=== PATIENT | male | born 1940 | race Caucasian/White ===

== ENCOUNTER 2019-11-23 10:46 | Inpatient (IN) | payer OTHER ==
[~2019-11-23] VITALS: Ht 193 cm; Wt 101.9 kg
[2019-11-23 11:42] LABS: Basophils # (auto) 0.1 10 ^3/uL (0-0.2); Basophils % (auto) 0.7 % (0.0-2.0); Eosinophils # (auto) 0.1 10 ^3/uL (0-0.8); Eosinophils % (auto) 1.1 % (0.0-7.0); Hematocrit 43.1 % (41.0-53.0); Hemoglobin 14.3 g/dL (13.5-17.5); Lymphocytes # (auto) 4.5 10 ^3/uL (0.4-5.4); Mean Corpuscular Hemoglobin 31.9 pg (28.0-32.0); Mean Corpuscular Hgb Conc. 33.2 g/dL (32.0-36.0); Monocytes # (auto) 0.6 10 ^3/uL (0-1.3); Monocytes % (auto) 5.3 % (0.0-12.0); Neutrophils # (auto) 5.5 10 ^3/uL (1.6-8.6); Neutrophils % (auto) 50.9 % (37.0-80.0); Nucleated Red Blood Cells % 0.1 %; Platelet Count (auto) 116 10^3/uL (140-450); Red Blood Cells 4.49 10^6/uL (4.5-5.90); Red Cell Distribution Width 14.8 % (11.8-14.3); White Blood Cell 10.8 10^3/uL (4.4-10.8)
[2019-11-23 12:01] LABS: Calcium 8.5 mg/dL (8.5-10.1); Potassium 3.9 mmol/L (3.5-5.1)
[2019-11-23 12:04] LABS: INR 1.14 (0.9-1.15); Partial Thromboplastin Time 29.6 sec (23.64-32.05)
[2019-11-23 12:09] LABS: Albumin 3.3 g/dL (3.4-5.0); BUN/Creatinine Ratio 19.7; Bilirubin, Total 1.1 mg/dL (0.2-1.0); Magnesium 2.3 mg/dL (1.6-2.6); Total Protein 6.7 g/dL (6.4-8.2)
[2019-11-23] MEDS ORDERED: NITROGLYCERIN 0.4 MG SL TAB SL PRN (14:00)
[2019-11-23] MEDS ORDERED: HYDROcodone-ACET 5/325MG TAB PO PRN (14:00)
[2019-11-23] MEDS ORDERED: MORPHINE SULF INJ 2 MG/ML SYRINGE 1ML IV PRN ×2 (14:00)
[2019-11-23] MEDS ORDERED: ONDANSETRON HCL 4 MG/2 ML VIAL IV PRN (14:00)
[2019-11-23] MEDS ORDERED: CARV12.544 PO (15:31)
[2019-11-23] MEDS ORDERED: ATOR40TA52 PO (15:31)
[2019-11-23] MEDS ORDERED: LISI10TA6 PO (15:31)
[2019-11-23] MEDS ORDERED: FINA5TAB4 PO (15:31)
[2019-11-23] MEDS ORDERED: ALLO100T PO (15:31)
[2019-11-23] MEDS ORDERED: ASPI-498 PO (15:32)
[2019-11-23] MEDS ORDERED: MULT-928 PO (15:34)
[2019-11-23] MEDS ORDERED: CINN500C7 PO (15:34)
[2019-11-23] MEDS ORDERED: MAGN400T40 PO (15:35)
[2019-11-23 16:02] VITALS: BP 142/78
--- NOTE | 2019-11-23 16:02 | NUR ---
Telemetry admit from ER BHAVANI HENDRIX admitted to Telemetry unit after SBAR received. Patient oriented to LENORA MIRAMONTES primary RN, unit, room 219B and unit policies regarding patient care and visiting hours. Patient now on continuous telemetry monitoring, tele box # 35 and telemetry reading on arrival to unit is NSR 72. Patient placed on bedside oxygen, weighed by bedscale and encouraged to call if they need something. All questions and concerns addressed, patient verbalized understanding.
[2019-11-23 17:00] VITALS: BP 142/78
[2019-11-23] MEDS ORDERED: IOHEXOL 350 MG/ML 100ML IJ ONE (17:02)
--- NOTE | 2019-11-23 17:14 | NUR ---
PATIENT TAKEN TO CT Accompanied by eladia on oxygen at 3L/min via nasal cannula. No signs of distress noted on departure.
--- NOTE | 2019-11-23 17:37 | NUR ---
PATIENT BACK FROM CT Patient back on oxygen at 3L/min via nasal cannula, no signs of distress noted.
--- NOTE | 2019-11-23 18:51 | NUR ---
CALL FROM RADIOLOGIST Darryl Montemayor reported patient's CT angiogram of the chest shows large bilateral pulmonary emboli as well as RV strain. Will notify
--- NOTE | 2019-11-23 18:53 | NUR ---
MESSAGE LEFT FOR Keiko ODOM regarding patient results from CT angio. Message left. awaiting call back.
--- NOTE | 2019-11-23 18:57 | NUR ---
CALL FROM Keiko ODOM updated on the patient status. New orders received for stat consult with tara and heparin drip per protocol, and ICU transfer.
[2019-11-23] MEDS ORDERED: HEPARIN SODIUM (PORCINE) 5000 UNITS/ML 1ML VIAL IV ONE (19:00)
--- NOTE | 2019-11-23 19:06 | NUR ---
NOTIFIED CHARGE AND HOUSE SUP OF ORDER FOR TRANSFER TO ICU.
--- NOTE | 2019-11-23 19:20 | NUR ---
received report from sid verde. per mehreen pulmonary consult with tara called by special education secretary. awaiting heparin.
--- NOTE | 2019-11-23 19:30 | NUR ---
Opening Shift Note Assumed care of patient, awake and alert watching tv. No S/S of distress/SOB or pain. Instructed on POC and to call for assist PRN, will continue to monitor for changes Q1hr and PRN. bed in low position and call light within reach.
[2019-11-23 19:49] LABS: Basophils # (auto) 0 10 ^3/uL (0-0.2); Basophils % (auto) 0.6 % (0.0-2.0); Eosinophils # (auto) 0.1 10 ^3/uL (0-0.8); Eosinophils % (auto) 0.9 % (0.0-7.0); Hematocrit 42.4 % (41.0-53.0); Lymphocytes # (auto) 3.3 10 ^3/uL (0.4-5.4); Lymphocytes % (auto) 39.7 % (10.0-50.0); Mean Corpuscular Hemoglobin 31.7 pg (28.0-32.0); Monocytes # (auto) 0.5 10 ^3/uL (0-1.3); Monocytes % (auto) 6.5 % (0.0-12.0); Neutrophils # (auto) 4.4 10 ^3/uL (1.6-8.6); Neutrophils % (auto) 52.3 % (37.0-80.0); Nucleated Red Blood Cells % 0.1 %; Platelet Count (auto) 110 10^3/uL (140-450); Red Blood Cells 4.41 10^6/uL (4.5-5.90); Red Cell Distribution Width 14.7 % (11.8-14.3); White Blood Cell 8.4 10^3/uL (4.4-10.8)
[2019-11-23 19:57] LABS: INR 1.18 (0.9-1.15); Partial Thromboplastin Time 29.3 sec (23.64-32.05)
[2019-11-23 20:00] VITALS: BP 126/69
[2019-11-23] MEDS ORDERED: HEPARIN SODIUM (PORCINE) 5000 UNITS/ML 1ML VIAL ONE ×5 (20:01→20:02)
--- NOTE | 2019-11-23 20:20 | NUR ---
patient assisted to bedside commode. patient had a BM. patient assisted back to bed. call light within reach and bed in low position side rails up times 2.
[2019-11-23] MEDS: HEPARIN DRIP/D5W 100UNITS/ML 250 ML IV SCH (20:41)
--- NOTE | 2019-11-23 20:50 | NUR ---
notified medical assistant secretary alphonse of pulmonary consult.
[2019-11-23 21:44] VITALS: BP 129/70
[2019-11-23] MEDS: CARVEDILOL 12.5 MG TAB PO SCH (21:52)
[2019-11-23] MEDS: ATORVASTATIN 20 MG TAB PO SCH (21:52)
[2019-11-24 03:32] LABS: INR 1.28 (0.9-1.15)
[2019-11-24 03:34] LABS: Partial Thromboplastin Time > 139.0 sec (23.64-32.05)
--- NOTE | 2019-11-24 03:36 | NUR ---
heparin aptt >139, heparin put on hold per heparin protocol. Tila BARLOW at bedside to verify.
--- NOTE | 2019-11-24 04:36 | NUR ---
heparin heparin decreased by 3ml with patricia pabon. heparin rate is now 14.5ml. patient is awake and alert denies sob distress or pain.
[2019-11-24 05:03] VITALS: BP 117/67
--- NOTE | 2019-11-24 06:15 | NUR ---
patient urinated. 200 ml urine output. patient denies sob distress or pain. bed in low position and call light within reach
--- NOTE | 2019-11-24 06:34 | NUR ---
lab at bedside for lab draws
--- NOTE | 2019-11-24 06:51 | NUR ---
patient rounds patient is in bed resting denies sob distress or pain. iv line is patent and asymptomatic running heparin. IS and SCD at bedside. call light within reach and bed in low position
--- NOTE | 2019-11-24 07:08 | NUR ---
REPORT GIVEN TO DAYSHIFT RN PATIENT DENIES SOB DISTRESS OR PAIN.
[2019-11-24 09:00] VITALS: BP 127/70
[2019-11-24] MEDS: HEPARIN DRIP/D5W 100UNITS/ML 250 ML IV SCH ×3 (10:18→15:23)
[2019-11-24] MEDS: ASPirin 81 mg TAB PO SCH (10:25)
[2019-11-24] MEDS: FINASTERIDE 5 MG TAB PO SCH (10:26)
[2019-11-24] MEDS: ALLOPURINOL 100 MG TAB PO SCH (10:26)
[2019-11-24] MEDS: LISINOPRIL 10 MG TAB PO SCH (10:27)
[2019-11-24] MEDS: CARVEDILOL 12.5 MG TAB PO SCH ×2 (10:27→21:53)
[2019-11-24 10:41] LABS: INR 1.25 (0.9-1.15)
[2019-11-24 10:43] LABS: Partial Thromboplastin Time > 139.0 sec (23.64-32.05)
--- NOTE | 2019-11-24 10:45 | NUR ---
PTT GREATER THAN 139.0 HEPARIN DRIP STOPPED FOR 1 HOUR PER PROTOCOL.
[2019-11-24 13:00] VITALS: BP 136/70
[2019-11-24 15:06] LABS: INR 1.2 (0.9-1.15)
[2019-11-24 15:10] LABS: Partial Thromboplastin Time 80.2 sec (23.64-32.05)
[2019-11-24 17:00] VITALS: BP 129/68
--- NOTE | 2019-11-24 19:11 | NUR ---
Opening Shift Note Assumed care of patient, awake and alert. patient is up sitting,consumed 100% of food. No S/S of distress/SOB or pain. IS at bedside. iv patent and intact running heparin at 9.5 ml. 200 ml of light tank output in urinal. Instructed on POC and to call for assist PRN, will continue to monitor for changes Q1hr and PRN. bed in low position call light within reach.
[2019-11-24 19:47] VITALS: BP 115/60
[2019-11-24 21:28] LABS: INR 1.21 (0.9-1.15); Partial Thromboplastin Time 65.2 sec (23.64-32.05)
--- NOTE | 2019-11-24 21:38 | NUR ---
heparin 65.2 aptt per heparin protocol no change to rate of 9.5ml . iv is intact and patent. Addendum: 11/24/19 at 2143 by ZACHERY BARONE RN RN 2137 patricia mckinney
[2019-11-24] MEDS: ATORVASTATIN 20 MG TAB PO SCH (21:54)
[2019-11-24 22:00] VITALS: BP 117/65
--- NOTE | 2019-11-24 23:03 | NUR ---
patient rounds patient resting in bed denies sob distress or pain. 123/63 blood pressure, heat rate 62bpm,rr 17 even and unlabored, oxygen 98% via 3 l nasal cannula. ekg done and placed in chart due to pvc shown on telemonitor. ekg shows no pvcs. call light within reach and bed in low position. heparin drip running. iv site is intact and patent.
--- NOTE | 2019-11-25 01:55 | NUR ---
patient rounds Patient urine output of 100ml. patient requesting a blanket. denies sob distress or pain.
[2019-11-25 03:21] LABS: INR 1.22 (0.9-1.15)
[2019-11-25 03:26] LABS: Partial Thromboplastin Time 74.2 sec (23.64-32.05)
--- NOTE | 2019-11-25 03:44 | NUR ---
heparin aptt 74.2. per heparin protocol no change. heparin running at 9.5ml. patricia gao verified.
[2019-11-25 05:00] VITALS: BP 116/70
[2019-11-25 08:37] LABS: Basophils # (auto) 0.1 10 ^3/uL (0-0.2); Basophils % (auto) 1.1 % (0.0-2.0); Eosinophils # (auto) 0.1 10 ^3/uL (0-0.8); Eosinophils % (auto) 1.3 % (0.0-7.0); Hematocrit 43.9 % (41.0-53.0); Hemoglobin 14.5 g/dL (13.5-17.5); Lymphocytes # (auto) 4.6 10 ^3/uL (0.4-5.4); Lymphocytes % (auto) 44.7 % (10.0-50.0); Mean Corpuscular Hemoglobin 31.7 pg (28.0-32.0); Mean Corpuscular Volume 95.9 fL (80.0-100.0); Monocytes # (auto) 0.5 10 ^3/uL (0-1.3); Monocytes % (auto) 4.8 % (0.0-12.0); Neutrophils % (auto) 48.1 % (37.0-80.0); Nucleated Red Blood Cells % 0.1 %; Platelet Count (auto) 141 10^3/uL (140-450); Red Blood Cells 4.58 10^6/uL (4.5-5.90); Red Cell Distribution Width 14.6 % (11.8-14.3); White Blood Cell 10.3 10^3/uL (4.4-10.8)
[2019-11-25 08:57] LABS: INR 1.18 (0.9-1.15); Partial Thromboplastin Time 69.3 sec (23.64-32.05)
[2019-11-25 09:00] VITALS: BP 126/67
--- NOTE | 2019-11-25 09:17 | NUR ---
HIDE SHAKER Contacted field case manager in regards of active social service order, per field case manager " I will contact patient insurance and see if Eliquis it is covered/affordable for patient."
--- NOTE | 2019-11-25 09:35 | NUR ---
OXYGEN ASSESSMENT SITTING ON ON O2 3L NC: 98% WALKING ON 02 3L NC: 97% WALKING WITHOUT OXYGEN: 92% PATIENT DENIES SHORTNESS OF BREATH WITHOUT O2, AND WITH EXERTION. Signed: 11/25/19 at 938 by CHANO GORMAN <Co-Signature Required> Co-Signed: 11/25/19 at 938 by SARAH CLARK RN RN
[2019-11-25] MEDS: LISINOPRIL 10 MG TAB PO SCH (09:49)
[2019-11-25] MEDS: ASPirin 81 mg TAB PO SCH (09:49)
[2019-11-25] MEDS: ALLOPURINOL 100 MG TAB PO SCH (09:50)
[2019-11-25] MEDS: CARVEDILOL 12.5 MG TAB PO SCH (09:51)
[2019-11-25] MEDS: FINASTERIDE 5 MG TAB PO SCH (09:51)
--- NOTE | 2019-11-25 10:25 | NUR ---
1000 11/25/19 - Contacted [employer] briefcase sewer Tala at [phone] regarding medication coverage. Tala stated she would contact outpatient coordinator and get back with me.
--- NOTE | 2019-11-25 10:30 | NUR ---
OXYGEN ASSESSMENT Patient off oxygen since 0900. Current saturation is 88%-89% post exertion. Patient denies feeling short of breath but saturation is holding at 89%. Will place NC o2 back at 1L to hold saturations over 92%
--- NOTE | 2019-11-25 10:45 | NUR ---
Assessment Patient is a 79-year-old male who is alert and oriented. Prior to admission patient lived home with his and functioned independently. Per patient he can care for his own ADLs. Patient informed me he does not need any medical equipment now. Per patient he will return home to his prior living arrangements post discharge and his will transport him home. Advised patient there is a social service consult for home health safety evaluation and to assess patient for oxygen if less than 92% oxygen will be arranged. Informed patient clinical information will be faxed to [facility] and [facility]. Informed patient his health plan will determine if he meets criteria for home oxygen. Informed patient he has the right to participate in all discharge planning. Patient verbalized understanding and agreed to discharge plan. Faxed clinical information to [facility] and [facility]. Per Eva with [facility] they can accept patient and will be seen within 24-48hrs upon d/c day. Placed call to SITA Edgar with [facility] at 10:24am advising her of accepting agency and oxygen assessment. Per SITA Edgar patient does not meet criteria for home oxygen and they will authorize the home health. Informed YEN Valdes. Addendum: 11/25/19 at 1046 by ELODIA CRANE Amended: Links added.
--- NOTE | 2019-11-25 11:00 | NUR ---
PATIENTS OXYGEN SATURATION DROPPED TO 88%-89% WHILE ON ROOM AIR. WILL CONTINUE O2 AT 3L
[2019-11-25] MEDS ORDERED: ALBUAER3 IN (11:02)
[2019-11-25] MEDS ORDERED: APIX5TAB PO (11:02)
--- NOTE | 2019-11-25 11:30 | NUR ---
OXYGEN SATURATION PATIENT NEEDS OXYGEN AT 3L TO KEEP SATURATIONS ABOVE 92%
--- NOTE | 2019-11-25 11:42 | NUR ---
DR. MAI PAGED FOR DC CLEARANCE. AWAITING CALL BACK.
--- NOTE | 2019-11-25 11:50 | NUR ---
D/C wedding planning internship Cinthia advised me patient oxygen saturation dropped to 88%-89% while on room air. Informed patient updated notes will be faxed to [facility]. Placed followed up called to SITA Edgar with [facility] at 11:35 am advising her patient oxygen saturation is under 92%. Per SITA Edgar doctor contact her and they will be authorizing home oxygen. Faxed clinical information to [facility] requesting for portable oxygen to be deliver to bedside.
[2019-11-25] MEDS ORDERED: WARF-196 PO (12:08)
[2019-11-25] MEDS ORDERED: ENO100SY SC (12:08)
[2019-11-25] MEDS ORDERED: WARFARIN SODIUM 5 MG TAB PO ONE ×2 (12:15)
[2019-11-25 13:00] VITALS: BP 120/65
[2019-11-25] MEDS ORDERED: APIXABAN 5 MG TAB PO ONE (13:00)
[2019-11-25 13:33] VITALS: BP 120/65
--- NOTE | 2019-11-25 15:03 | NUR ---
LOVENOX ADMIN VERIFICATION CALL TO DR Keiko POTTER TO CLARIFY IF MD WANTS PATIENT TO RECEIVE DOSE OF LOVENOX ALONG WITH ONE TIME COUMADIN PRIOR TO DISCHARGE. PER MD, PATIENT IS TO RECEIVE BOTH LOVENOX AND 5MG COUMADIN BEFORE DISCHARGE. WILL IMPLEMENT.
--- NOTE | 2019-11-25 16:21 | NUR ---
D/C Planning Regarding social service consult for daily INR checks. Faxed updated order to [facility] and [facility]. [facility] will deliver portable oxygen between 16:00-19:00 and concentrate to home. Informed YEN Valdes.
--- NOTE | 2019-11-25 16:32 | NUR ---
PATIENT TEACHING PATIENT WAS INSTRUCTED ON HOW AND WHERE TO SELF-INJECT LOVENOX. PATIENT VERBALIZED UNDERSTANDING. INSTRUCTION PACKAGE ALSO INCLUDED WITH DISCHARGE PAPERWORK. PATIENT EDUCATED ON WARFARIN/LOVENOX USES, SIDE EFFECTS, AND COUNTER INTERACTIONS WITH VERBALIZED UNDERSTANDING. Signed: 11/25/19 at 1638 by CHANO GORMAN <Co-Signature Required> Co-Signed: 11/25/19 at 1638 by SARAH CLARK RN RN
--- NOTE | 2019-11-25 16:38 | NUR ---
HOME 02 RECEIVED CALL FROM [facility] [employer]PAR[employer] KITCHEN AIDE, STATING PATIENT'S HOME 02 ETA IS BETWEEN 1600 AND 1900. PATIENT NOTIFIED OF ETA. Signed: 11/25/19 at 1640 by CHANO GORMAN <Co-Signature Required> Co-Signed: 11/25/19 at 1640 by SARAH CLARK RN RN
[2019-11-25 17:00] VITALS: BP 121/67
--- NOTE | 2019-11-25 17:50 | NUR ---
HOME O2 PORTABLE OXYGEN TANK DELIVERED AT BED SIDE.
--- NOTE | 2019-11-25 18:08 | NUR ---
Discharge instructions given as ordered. Encourage to follow up with PMD as instructed. All questions and concerns addressed. Lovenox sc teaching given. Patient verbalized understanding. Medication reconciliation form completed and copy given to patient. IV removed with catheter intact, pressure dressing applied. Telemetry unit returned to ICU. Patient taken to vehicle via wheelchair with all personal belongings and portable oxygen tank, accompanied by staff. No distress noted at time of departure.
[2019-11-25] MEDS ORDERED: APIXABAN 5 MG TAB PO SCH (22:00)
[2019-11-25] MEDS ORDERED: ENOXAPARIN SOD 100 MG/1 ML SYRINGE SC SCH (22:00)
== END 2019-11-25 18:15 | disposition home health service (06) | DRG 175 ==
LOC: EDBD 10:46 → ER 10:46 → TELE 10:47 → TELE-CENTR 16:05
PROVIDERS: ADMIT Internal Medicine; ATTEND Internal Medicine
DX: I26.99 Other pulmonary embolism without acute cor pulmonale (principal); J96.01 Acute respiratory failure with hypoxia; J98.11 Atelectasis; R07.89 Other chest pain; I10 Essential (primary) hypertension; E78.5 Hyperlipidemia, unspecified; I25.10 Atherosclerotic heart disease of native coronary artery without angina pectoris; I27.20 Pulmonary hypertension, unspecified; I77.819 Aortic ectasia, unspecified site; M10.9 Gout, unspecified; Z83.3 Family history of diabetes mellitus; Z95.5 Presence of coronary angioplasty implant and graft
CPT/HCPCS: 36415; 71045; 71275; 80053; 83735; 83880; 84484; 85025; 85610; 85730; 93306; 93970; 96365; G0378

== ENCOUNTER 2019-11-28 06:44 | Emergency (ER) | payer OTHER ==
[~2019-11-28] VITALS: Ht 193 cm; Wt 102.1 kg
[~2019-11-28 06:44] MED LIST: ALBUAER3 IN; ALLO100T PO; ASPI-498 PO; ATOR40TA52 PO; CARV12.544 PO; CINN500C7 PO; ENO100SY SC; FINA5TAB4 PO; LISI10TA6 PO; MAGN400T40 PO; MULT-928 PO; WARF-196 PO
[2019-11-28 06:57] VITALS: BP 150/72
[2019-11-28] MEDS ORDERED: SODIUM CHLORIDE 0.9% 1,000 ML IV ONE (07:16)
[2019-11-28 09:28] LABS: Hematocrit 43.3 % (41.0-53.0); Hemoglobin 14.4 g/dL (13.5-17.5); Mean Corpuscular Hemoglobin 31.8 pg (28.0-32.0); Mean Corpuscular Hgb Conc. 33.2 g/dL (32.0-36.0); Mean Corpuscular Volume 95.8 fL (80.0-100.0); Platelet Count (auto) 157 10^3/uL (140-450); Red Blood Cells 4.52 10^6/uL (4.5-5.90); Red Cell Distribution Width 14.6 % (11.8-14.3); White Blood Cell 9.9 10^3/uL (4.4-10.8)
[2019-11-28 09:34] LABS: Band Neutrophils % (manual) 0; Basophils % (manual) 0 (0.0-2.0); Blast Cells 0; INR 2.13 (0.9-1.15); Metamyelocytes % 0; Myelocytes % 0; Partial Thromboplastin Time 39.3 sec (23.64-32.05); Promyelocytes % 0
[2019-11-28 09:37] LABS: BUN/Creatinine Ratio 18.6; Calcium 9.2 mg/dL (8.5-10.1); Potassium 4.3 mmol/L (3.5-5.1)
[2019-11-28 11:50] LABS: Eosinophils % (manual) 1 (0-7); Lymphocytes % (manual) 45 (10.0-50.0); Monocytes % (manual) 2 (0-12); Reactive Lymphocytes 2
== END 2019-11-28 10:41 | disposition home or self-care (01) ==
LOC: ER 06:44
DX: R04.0 Epistaxis (principal); D68.9 Coagulation defect, unspecified; I10 Essential (primary) hypertension; E78.5 Hyperlipidemia, unspecified; Z79.899 Other long term (current) drug therapy; Z86.711 Personal history of pulmonary embolism
CPT/HCPCS: 30901; 36415; 80048; 85007; 85027; 85610; 85730

== ENCOUNTER 2022-10-08 07:05 | Day surgery (SDC) | payer OTHER ==
[~2022-10-08] VITALS: Ht 193 cm; Wt 93.0 kg
[~2022-10-08 07:05] MED LIST changes: -ALBUAER3 IN; -ASPI-498 PO; -CINN500C7 PO; -ENO100SY SC; +LATA0.008 OP; +LISI10TA34 PO; -LISI10TA6 PO; -MAGN400T40 PO; +NITR0.4S29 SL
[2022-10-08] MEDS ORDERED: MIDAZOLAM HCL 2MG/2ML 2ml VIAL (1mg/ml) IM ONE (07:30)
[2022-10-08] MEDS ORDERED: fentaNYL CITRATE 100 MCG/2 ML VL IV ONE ×2 (07:30→08:30)
[2022-10-08] MEDS ORDERED: LIDOCAINE VISCOUS 2% 15ML UD MT ONE ×2 (07:30→08:30)
[2022-10-08] MEDS ORDERED: MIDAZOLAM HCL 2MG/2ML 2ml VIAL (1mg/ml) IV ONE ×2 (08:30→10:15)
[2022-10-08 09:49] VITALS: BP 121/50
[2022-10-08 10:04] VITALS: BP 108/44
[2022-10-08 10:19] VITALS: BP 111/45
[2022-10-08 10:34] VITALS: BP 114/49
[2022-10-08 10:36] VITALS: BP 118/50
== END 2022-10-08 10:47 | disposition home or self-care (01) ==
LOC: CATH 07:05
PROVIDERS: ATTEND Internal Medicine Cardiovascular Disease
DX: I35.9 Nonrheumatic aortic valve disorder, unspecified (principal); I08.3 Combined rheumatic disorders of mitral, aortic and tricuspid valves; I10 Essential (primary) hypertension; Z79.899 Other long term (current) drug therapy
CPT/HCPCS: 76937; 93312; J2250; J3010; 99152

== ENCOUNTER 2022-12-30 15:03 | Inpatient (IN) | payer OTHER ==
[~2022-12-30] VITALS: Ht 193 cm; Wt 99.2 kg
[2022-12-30] VITALS (19 sets, daily range): BP systolic 100–123; BP diastolic 43–62; PULSE 73–100; RESP 15–25; TEMP 95.9–97.6; O2SAT 94–99
[2022-12-30 16:47] LABS: Urine Bacteria NONE SEEN /hpf (None Seen); Urine Blood 2+ /uL (Negative); Urine Clarity Clear (Clear); Urine Color Yellow (Yellow); Urine Protein, UAD 1+ (Negative); Urine Urobilinogen Normal (Negative); Urine WBC 11 /hpf (0 - 3); Urine pH 6.5 (5.0-8.0)
[2022-12-30] MEDS ORDERED: SODIUM CHLORIDE 0.9% 1,000 ML IV ONE ×2 (17:15→22:30)
[2022-12-30 17:28] LABS: Hematocrit 19.5 % (41.0-53.0); Mean Corpuscular Hemoglobin 32.6 pg (28.0-32.0); Mean Corpuscular Hgb Conc. 29.9 g/dL (32.0-36.0); Mean Corpuscular Volume 109.1 fL (80.0-100.0); Red Blood Cells 1.79 10^6/uL (4.5-5.90)
[2022-12-30] MEDS ORDERED: cefTRIAXone 1GM/50ML D5W 50 ML IV ONE (17:30)
[2022-12-30] MEDS ORDERED: levoFLOXacin 500MG 100 ML IV ONE (17:30)
[2022-12-30 17:40] LABS: Red Cell Distribution Width 22.3 % (11.8-14.3)
[2022-12-30 17:43] LABS: Hemoglobin 5.8 g/dL (13.5-17.5); White Blood Cell 283.6 10^3/uL (4.4-10.8)
[2022-12-30 17:44] LABS: Band Neutrophils % (manual) 0; Basophils % (manual) 0 (0.0-2.0); Blast Cells 0; Eosinophils % (manual) 0 (0-7); Metamyelocytes % 0; Monocytes % (manual) 0 (0-12); Myelocytes % 0; Promyelocytes % 0; Reactive Lymphocytes 0
[2022-12-30 17:58] LABS: Albumin 2.2 g/dL (3.4-5.0); Calcium 7.2 mg/dL (8.7-10.4); Magnesium 2.6 mg/dL (1.6-2.6); Potassium 4.8 mmol/L (3.5-5.1)
[2022-12-30 18:05] LABS: Lymphocytes % (manual) 95 (10.0-50.0); Smudge Cells 35 /100 WBC
[2022-12-30 18:06] LABS: Anisocytosis Moderate; Macrocytosis Moderate; Ovalocytes FEW; Platelet Estimate Decreased; Polychromasia Slight
[2022-12-30 18:08] LABS: Lactic Acid w/Reflex 3.9 mmol/L (0.4-2.0)
[2022-12-30 18:10] LABS: BUN/Creatinine Ratio 31.2 (10.0-20.0); Bilirubin, Total 1.4 mg/dL (0.2-1.0)
[2022-12-30 18:31] LABS: Partial Thromboplastin Time 59.2 SEC (24.5-34.5); Prothrombin Time 55.5 sec (9.3-11.8)
[2022-12-30 18:39] LABS: INR 5.94 (0.9-1.15)
[2022-12-30] MEDS: NOREPINEPHRINE 8 MG/250ML KIT 250 ML IV SCH (19:29)
[2022-12-30] MEDS ORDERED: phytonadione 10 MG in SODIUM CHL 0.9% 50 ML IV ONE (22:30)
[2022-12-30] MEDS ORDERED: ONDANSETRON HCL 4 MG/2 ML VIAL IV PRN (22:30)
[2022-12-30] MEDS ORDERED: NITROGLYCERIN 0.4 MG SL TAB SL PRN (22:30)
[2022-12-30] MEDS ORDERED: ACETAMINOPHEN 325 MG TAB PO PRN (22:30)
[2022-12-30] MEDS ORDERED: MORPHINE SULFATE INJ 2 MG/ml SYRG IV PRN (22:30)
[2022-12-30] MEDS ORDERED: DOCUSATE SOD 100 MG CAP PO PRN (22:30)
[2022-12-30] MEDS ORDERED: HYDROcodone-ACET 5/325MG TAB PO PRN (22:30)
[2022-12-30] MEDS ORDERED: ALBUTEROL SULF 2.5 MG/0.5ML(0.5%) NEB SOLN NEB PRN (22:45)
[2022-12-30] MEDS ORDERED: IPRATROPIUM BROM 0.5 MG/2.5ML INH SOL NEB PRN (22:45)
[2022-12-31] VITALS (90 sets, daily range): BP systolic 77–125; BP diastolic 42–66; PULSE 77–116; RESP 11–26; TEMP 36.4; O2SAT 90–99
[2022-12-31] MEDS ORDERED: phytonadione 1 ML ONE (00:21)
[2022-12-31 04:38] LABS: Red Blood Cells 2.44 10^6/uL (4.5-5.90); Red Cell Distribution Width 19.2 % (11.8-14.3)
[2022-12-31 04:43] LABS: Hemoglobin 7.7 g/dL (13.5-17.5); INR 3.15 (0.9-1.15); Mean Corpuscular Hemoglobin 31.7 pg (28.0-32.0); Mean Corpuscular Volume 102.3 fL (80.0-100.0); Prothrombin Time 30.7 sec (9.3-11.8)
[2022-12-31 04:50] LABS: Calcium 7.4 mg/dL (8.7-10.4); Potassium 4.3 mmol/L (3.5-5.1)
[2022-12-31 04:52] LABS: BUN/Creatinine Ratio 37.9 (10.0-20.0)
[2022-12-31 04:55] LABS: Lactic Acid w/Reflex 2.4 mmol/L (0.4-2.0)
[2022-12-31 05:35] LABS: White Blood Cell 354.6 10^3/uL (4.4-10.8)
[2022-12-31 05:36] LABS: Band Neutrophils % (manual) 0; Basophils % (manual) 0 (0.0-2.0); Blast Cells 0; Eosinophils % (manual) 0 (0-7); Metamyelocytes % 0; Monocytes % (manual) 0 (0-12); Myelocytes % 0; Promyelocytes % 0; Reactive Lymphocytes 0
[2022-12-31] MEDS ORDERED: PIPERACILLIN-TAZOB 3.375GM 100 ML IV SCH (06:00)
[2022-12-31] MEDS: NOREPINEPHRINE 8 MG/250ML KIT 250 ML IV SCH ×2 (08:10→20:20)
[2022-12-31 08:25] LABS: Lymphocytes % (manual) 97 (10.0-50.0)
[2022-12-31 08:28] LABS: Anisocytosis Moderate; Platelet Estimate Adequate
[2022-12-31] MEDS: PANTOPRAZOLE 40 MG/10 ML VIAL INJ IV SCH ×2 (09:46→21:09)
[2022-12-31] MEDS ORDERED: HYDROCORTISONE SOD SUCC 100 MG/2ML INJ VIAL IV ONE (10:30)
[2022-12-31] MEDS ORDERED: VANCOMYCIN PER PHARMACY 0 MG IV SCH (10:30)
[2022-12-31] MEDS ORDERED: VANCOMYCIN 1GM/250ML 250 ML IV SCH (12:00)
[2022-12-31] MEDS: SODIUM CHLORIDE 0.9% 1,000 ML IV SCH (12:47)
[2022-12-31 13:46] LABS: Hemoglobin 7.2 g/dL (13.5-17.5); Red Cell Distribution Width 19.2 % (11.8-14.3)
[2022-12-31 13:52] LABS: Hematocrit 23.8 % (41.0-53.0); Mean Corpuscular Hemoglobin 31.1 pg (28.0-32.0); Mean Corpuscular Hgb Conc. 30.2 g/dL (32.0-36.0); Mean Corpuscular Volume 103.3 fL (80.0-100.0); Red Blood Cells 2.31 10^6/uL (4.5-5.90)
[2022-12-31 14:06] LABS: INR 1.71 (0.9-1.15); Prothrombin Time 17.3 sec (9.3-11.8)
[2022-12-31] MEDS: CEFEPIME 1GM/ 50ML 50 ML IV SCH (14:22)
[2022-12-31 14:32] LABS: White Blood Cell 348.7 10^3/uL (4.4-10.8)
[2022-12-31 14:35] LABS: Band Neutrophils % (manual) 0; Basophils % (manual) 0 (0.0-2.0); Blast Cells 0; Eosinophils % (manual) 0 (0-7); Metamyelocytes % 0; Myelocytes % 0; Promyelocytes % 0
[2022-12-31 14:49] LABS: Lactic Acid w/Reflex 2.1 mmol/L (0.4-2.0)
[2022-12-31 15:09] LABS: COVID19 ANTIGEN SOFIA FIA NEGATIVE (NEGATIVE)
[2022-12-31 18:21] LABS: Hematocrit 23.7 % (41.0-53.0); Hemoglobin 7.3 g/dL (13.5-17.5)
[2022-12-31] MEDS: HYDROCORTISONE SOD SUCC 100 MG/2ML INJ VIAL IV SCH (18:43)
[2022-12-31 20:48] LABS: Monocytes % (manual) 1 (0-12); Reactive Lymphocytes 6
[2022-12-31 20:50] LABS: Platelet Estimate Adequate
[2022-12-31 20:51] LABS: Anisocytosis Moderate
[2022-12-31 20:53] LABS: Smudge Cells 16 /100 WBC; Tear Drop Cells FEW
[2023-01-01] VITALS (95 sets, daily range): BP systolic 87–120; BP diastolic 37–67; PULSE 80–106; RESP 11–25; TEMP 96.4–97.7; O2SAT 94–99
[2023-01-01] MEDS: SODIUM CHLORIDE 0.9% 1,000 ML IV SCH ×2 (01:07→14:03)
[2023-01-01] MEDS: CEFEPIME 1GM/ 50ML 50 ML IV SCH (01:56)
[2023-01-01] MEDS: HYDROCORTISONE SOD SUCC 100 MG/2ML INJ VIAL IV SCH ×3 (01:57→19:32)
[2023-01-01 04:19] LABS: Hemoglobin 7.1 g/dL (13.5-17.5)
[2023-01-01 04:24] LABS: Hematocrit 22.9 % (41.0-53.0); Mean Corpuscular Hemoglobin 31.6 pg (28.0-32.0); Mean Corpuscular Volume 101.9 fL (80.0-100.0); Red Blood Cells 2.25 10^6/uL (4.5-5.90)
[2023-01-01 04:38] LABS: Band Neutrophils % (manual) 0; Basophils % (manual) 0 (0.0-2.0); Blast Cells 0; Eosinophils % (manual) 0 (0-7); Metamyelocytes % 0; Monocytes % (manual) 0 (0-12); Myelocytes % 0; Promyelocytes % 0; Reactive Lymphocytes 0
[2023-01-01 04:39] LABS: Chloride 103 mmol/L (98-107); Potassium 4.4 mmol/L (3.5-5.1); Sodium 133 mmol/L (136-145)
[2023-01-01 04:40] LABS: Calcium 7.4 mg/dL (8.7-10.4)
[2023-01-01 04:45] LABS: BUN/Creatinine Ratio 40.4 (10.0-20.0); Blood Urea Nitrogen 67 mg/dL (9-23); Glucose 129 mg/dL (74-106)
[2023-01-01 04:46] LABS: Magnesium 2.1 mg/dL (1.6-2.6)
[2023-01-01 04:47] LABS: Phosphorus 4.9 mg/dL (2.4-5.1)
[2023-01-01 07:18] LABS: Anisocytosis Slight; Lymphocytes % (manual) 96 (10.0-50.0); Smudge Cells 10 /100 WBC
[2023-01-01 07:19] LABS: Macrocytosis Slight; Platelet Estimate Adequate; Polychromasia Slight
[2023-01-01] MEDS: VANCOMYCIN 1GM/250ML 250 ML IV SCH (08:50)
[2023-01-01] MEDS: PANTOPRAZOLE 40 MG/10 ML VIAL INJ IV SCH ×2 (09:33→22:25)
[2023-01-01 11:04] LABS: Sodium Urine < 10 mmol/L (40-220)
[2023-01-01 11:11] LABS: Protein, Urine 38.4 mg/dL (0.0-11.9)
[2023-01-01 11:12] LABS: Creatinine, Urine 61.92 mg/dL (30.0-125.0)
[2023-01-01] MEDS: CEFEPIME 2GM/50ML NS 50 ML IV SCH (13:54)
[2023-01-01 15:14] LABS: Lymphocytes % (manual) 87 (10.0-50.0)
[2023-01-01] MEDS ORDERED: Ensure HIGH Protein Chocolate 8oz Bottle PO SCH (18:00)
[2023-01-01] MEDS: Glucerna Carbsteady SHAKE Vanilla 8oz PO SCH (18:30)
[2023-01-02] VITALS (101 sets, daily range): BP systolic 78–119; BP diastolic 36–63; PULSE 75–102; RESP 10–24; TEMP 95.4–98; O2SAT 92–99
[2023-01-02] MEDS: CEFEPIME 2GM/50ML NS 50 ML IV SCH ×2 (02:02→14:58)
[2023-01-02] MEDS: HYDROCORTISONE SOD SUCC 100 MG/2ML INJ VIAL IV SCH ×3 (02:49→18:37)
[2023-01-02] MEDS: VANCOMYCIN 1GM/250ML 250 ML IV SCH (02:49)
[2023-01-02 04:51] LABS: INR 1.43 (0.9-1.15); Partial Thromboplastin Time 38.1 SEC (24.5-34.5); Prothrombin Time 14.7 sec (9.3-11.8)
[2023-01-02 04:52] LABS: Chloride 104 mmol/L (98-107); Potassium 4.3 mmol/L (3.5-5.1); Sodium 133 mmol/L (136-145)
[2023-01-02 04:53] LABS: Anion Gap 8.4 (5-15); Carbon Dioxide 20.6 mmol/L (20-30)
[2023-01-02 04:54] LABS: Calcium 7.5 mg/dL (8.7-10.4)
[2023-01-02 04:58] LABS: BUN/Creatinine Ratio 34.9 (10.0-20.0); Glucose 125 mg/dL (74-106)
[2023-01-02 05:15] LABS: Blood Urea Nitrogen 51 mg/dL (9-23); Hematocrit 21.1 % (41.0-53.0); Mean Corpuscular Hgb Conc. 31.7 g/dL (32.0-36.0)
[2023-01-02 05:18] LABS: Mean Corpuscular Hemoglobin 32.8 pg (28.0-32.0); Mean Corpuscular Volume 103.5 fL (80.0-100.0); Red Blood Cells 2.04 10^6/uL (4.5-5.90); Red Cell Distribution Width 19.4 % (11.8-14.3)
[2023-01-02 05:47] LABS: Hemoglobin 6.7 g/dL (13.5-17.5); White Blood Cell 206.9 10^3/uL (4.4-10.8)
[2023-01-02 05:49] LABS: Band Neutrophils % (manual) 0; Basophils % (manual) 0 (0.0-2.0); Blast Cells 0; Eosinophils % (manual) 0 (0-7); Metamyelocytes % 0; Myelocytes % 0; Promyelocytes % 0; Reactive Lymphocytes 0
[2023-01-02] MEDS: Glucerna Carbsteady SHAKE Vanilla 8oz PO SCH ×3 (08:00→18:00)
[2023-01-02 08:30] LABS: Lymphocytes % (manual) 93 (10.0-50.0); Monocytes % (manual) 2 (0-12)
[2023-01-02 08:32] LABS: Anisocytosis Moderate; Hypochromia Slight; Macrocytosis Slight; Platelet Estimate Decreased
[2023-01-02] MEDS ORDERED: FUROSEMIDE 40 MG/4 ML VIAL IV SCH (10:00)
[2023-01-02] MEDS: NOREPINEPHRINE 8 MG/250ML KIT 250 ML IV SCH (10:21)
[2023-01-02] MEDS: PANTOPRAZOLE 40 MG/10 ML VIAL INJ IV SCH ×2 (10:29→23:55)
[2023-01-02] MEDS: IRON SUCROSE COMPLEX 200 MG in SODIUM CHL 0.9% 100 ML IV SCH (13:53)
[2023-01-02 14:17] LABS: Body Fluid Red Blood Cells 1322500 CUMM (0-2000); Body Fluid White Blood Cells 156 CUMM (0-200)
[2023-01-02 14:32] LABS: Body Fluid Polymorphonuclear 4 % (0-25)
[2023-01-02] MEDS: ALBUMIN 25% 100 ML IV SCH ×2 (17:37→23:56)
[2023-01-02] MEDS ORDERED: LIDOCAINE 1% (LOCAL ANESTH.) PF 5ml SDV ID ONE (18:15)
[2023-01-02] MEDS: FUROSEMIDE 40 MG/4 ML VIAL IV SCH (18:36)
[2023-01-02 19:06] LABS: Hemoglobin 7.6 g/dL (13.5-17.5)
[2023-01-02 19:09] LABS: Hematocrit 24.8 % (41.0-53.0)
[2023-01-02] MEDS: SODIUM CHLOR 0.9% PF (SALINE LOCK) 10ML VIAL/SYR IV SCH (23:56)
[2023-01-03] VITALS (102 sets, daily range): BP systolic 86–116; BP diastolic 37–67; PULSE 57–99; RESP 9–29; TEMP 95.9–97.7; O2SAT 93–99
[2023-01-03] MEDS: CEFEPIME 2GM/50ML NS 50 ML IV SCH ×2 (02:05→15:34)
[2023-01-03] MEDS: HYDROCORTISONE SOD SUCC 100 MG/2ML INJ VIAL IV SCH ×3 (02:07→21:36)
[2023-01-03 04:31] LABS: Chloride 103 mmol/L (98-107); Potassium 3.9 mmol/L (3.5-5.1); Sodium 133 mmol/L (136-145)
[2023-01-03 04:32] LABS: Anion Gap 9.4 (5-15); Calcium 7.7 mg/dL (8.7-10.4); Carbon Dioxide 20.6 mmol/L (20-30)
[2023-01-03 04:37] LABS: BUN/Creatinine Ratio 36.2 (10.0-20.0); Blood Urea Nitrogen 55 mg/dL (9-23); Glucose 132 mg/dL (74-106)
[2023-01-03 04:38] LABS: Hematocrit 21.1 % (41.0-53.0); Mean Corpuscular Hgb Conc. 31.8 g/dL (32.0-36.0); Mean Corpuscular Volume 100.5 fL (80.0-100.0)
[2023-01-03 04:59] LABS: Hemoglobin 6.7 g/dL (13.5-17.5); Red Cell Distribution Width 20.1 % (11.8-14.3); White Blood Cell 200.4 10^3/uL (4.4-10.8)
[2023-01-03 05:01] LABS: Band Neutrophils % (manual) 0; Basophils % (manual) 0 (0.0-2.0); Blast Cells 0; Eosinophils % (manual) 0 (0-7); Metamyelocytes % 0; Monocytes % (manual) 0 (0-12); Myelocytes % 0; Promyelocytes % 0; Reactive Lymphocytes 0
[2023-01-03] MEDS: FUROSEMIDE 40 MG/4 ML VIAL IV SCH ×2 (06:38→17:19)
[2023-01-03 07:54] LABS: Lymphocytes % (manual) 86 (10.0-50.0); Platelet Estimate Decreased
[2023-01-03] MEDS: Glucerna Carbsteady SHAKE Vanilla 8oz PO SCH ×3 (08:49→17:20)
[2023-01-03] MEDS: SODIUM CHLOR 0.9% PF (SALINE LOCK) 10ML VIAL/SYR IV SCH ×2 (09:45→21:36)
[2023-01-03] MEDS: PANTOPRAZOLE 40 MG/10 ML VIAL INJ IV SCH ×2 (09:45→21:36)
[2023-01-03] MEDS: ALBUMIN 25% 100 ML IV SCH (09:45)
[2023-01-03] MEDS: IRON SUCROSE COMPLEX 200 MG in SODIUM CHL 0.9% 100 ML IV SCH (12:00)
[2023-01-03 12:07] LABS: LD, Body Fluid 369 IU/L (.); Protein, Body Fluid 2.4 g/dL (.)
[2023-01-03 13:06] LABS: Glucose, Body Fluid <2 mg/dL (.)
[2023-01-03] MEDS: NOREPINEPHRINE 8 MG/250ML KIT 250 ML IV SCH ×2 (17:15→19:36)
[2023-01-03] MEDS: MIDODRINE HCL 10 MG TAB PO SCH (17:19)
[2023-01-04] VITALS (97 sets, daily range): BP systolic 84–114; BP diastolic 38–55; PULSE 57–92; RESP 10–26; TEMP 95.4–97.7; O2SAT 85–98
[2023-01-04] MEDS: CEFEPIME 2GM/50ML NS 50 ML IV SCH ×2 (03:42→14:29)
[2023-01-04 05:03] LABS: Anion Gap 9.2 (5-15); Carbon Dioxide 21.8 mmol/L (20-30); Chloride 103 mmol/L (98-107); Potassium 3.5 mmol/L (3.5-5.1); Sodium 134 mmol/L (136-145)
[2023-01-04 05:04] LABS: Calcium 7.8 mg/dL (8.7-10.4); Hematocrit 26.7 % (41.0-53.0); Mean Corpuscular Hemoglobin 32.8 pg (28.0-32.0); Mean Corpuscular Hgb Conc. 33.5 g/dL (32.0-36.0); Mean Corpuscular Volume 98.1 fL (80.0-100.0); Red Blood Cells 2.72 10^6/uL (4.5-5.90); Red Cell Distribution Width 19.6 % (11.8-14.3)
[2023-01-04 05:09] LABS: BUN/Creatinine Ratio 34.2 (10.0-20.0); Blood Urea Nitrogen 51 mg/dL (9-23); Glucose 114 mg/dL (74-106)
[2023-01-04 05:10] LABS: Magnesium 1.9 mg/dL (1.6-2.6)
[2023-01-04 05:39] LABS: White Blood Cell 193.5 10^3/uL (4.4-10.8)
[2023-01-04 05:40] LABS: Band Neutrophils % (manual) 0; Basophils % (manual) 0 (0.0-2.0); Blast Cells 0; Eosinophils % (manual) 0 (0-7); Metamyelocytes % 0; Myelocytes % 0; Promyelocytes % 0; Reactive Lymphocytes 0
[2023-01-04] MEDS: MIDODRINE HCL 10 MG TAB PO SCH ×3 (06:07→17:05)
[2023-01-04] MEDS: POTASSIUM CHL 20MEQ/100ML 100 ML IV SCH ×2 (07:41→09:11)
[2023-01-04] MEDS: Glucerna Carbsteady SHAKE Vanilla 8oz PO SCH ×3 (09:11→17:06)
[2023-01-04] MEDS: HYDROCORTISONE SOD SUCC 100 MG/2ML INJ VIAL IV SCH ×2 (09:11→21:33)
[2023-01-04] MEDS: PANTOPRAZOLE 40 MG/10 ML VIAL INJ IV SCH ×2 (09:11→21:33)
[2023-01-04] MEDS: SODIUM CHLOR 0.9% PF (SALINE LOCK) 10ML VIAL/SYR IV SCH ×2 (09:12→21:32)
[2023-01-04] MEDS: FUROSEMIDE 40 MG/4 ML VIAL IV SCH (09:12)
[2023-01-04 09:27] LABS: Lymphocytes % (manual) 88 (10.0-50.0); Monocytes % (manual) 3 (0-12); Platelet Estimate Decreased
[2023-01-04] MEDS ORDERED: POTASSIUM EFFERVESENT TAB 25 MEQ PO SCH (10:00)
[2023-01-04 13:20] LABS: Bilirubin, Direct 1.2 mg/dL (<0.3); Bilirubin, Total 2.1 mg/dL (0.2-1.0); Total Protein 4.4 g/dL (5.7-8.2)
[2023-01-04] MEDS: IRON SUCROSE COMPLEX 200 MG in SODIUM CHL 0.9% 100 ML IV SCH (13:33)
[2023-01-04] MEDS: POTASSIUM EFFERVESENT TAB 25 MEQ PO SCH (21:33)
[2023-01-05] VITALS (96 sets, daily range): BP systolic 84–110; BP diastolic 42–58; PULSE 68–101; RESP 10–22; TEMP 97–97.3; O2SAT 95–98
[2023-01-05] MEDS: CEFEPIME 2GM/50ML NS 50 ML IV SCH ×2 (01:59→14:00)
[2023-01-05 04:15] LABS: Hemoglobin 9.2 g/dL (13.5-17.5); Mean Corpuscular Hemoglobin 31.8 pg (28.0-32.0)
[2023-01-05 04:19] LABS: Hematocrit 28.1 % (41.0-53.0); Mean Corpuscular Hgb Conc. 32.7 g/dL (32.0-36.0); Mean Corpuscular Volume 97.2 fL (80.0-100.0); Red Cell Distribution Width 19.4 % (11.8-14.3)
[2023-01-05 04:33] LABS: White Blood Cell 193.9 10^3/uL (4.4-10.8)
[2023-01-05 04:34] LABS: Band Neutrophils % (manual) 0; Basophils % (manual) 0 (0.0-2.0); Blast Cells 0; Eosinophils % (manual) 0 (0-7); Metamyelocytes % 0; Monocytes % (manual) 0 (0-12); Myelocytes % 0; Promyelocytes % 0; Reactive Lymphocytes 0
[2023-01-05 04:39] LABS: Chloride 104 mmol/L (98-107); Potassium 4.6 mmol/L (3.5-5.1); Sodium 135 mmol/L (136-145)
[2023-01-05 04:40] LABS: Anion Gap 6.3 (5-15); Calcium 7.8 mg/dL (8.7-10.4); Carbon Dioxide 24.7 mmol/L (20-30)
[2023-01-05 04:45] LABS: BUN/Creatinine Ratio 36.4 (10.0-20.0); Blood Urea Nitrogen 51 mg/dL (9-23); Glucose 130 mg/dL (74-106)
[2023-01-05] MEDS: NOREPINEPHRINE 8 MG/250ML KIT 250 ML IV SCH (06:23)
[2023-01-05] MEDS: MIDODRINE HCL 10 MG TAB PO SCH ×2 (06:28→12:00)
[2023-01-05 08:10] LABS: Lymphocytes % (manual) 88 (10.0-50.0)
[2023-01-05 08:11] LABS: Platelet Estimate Decreased
[2023-01-05] MEDS: SODIUM CHLOR 0.9% PF (SALINE LOCK) 10ML VIAL/SYR IV SCH ×2 (09:55→21:35)
[2023-01-05] MEDS: FUROSEMIDE 40 MG/4 ML VIAL IV SCH (09:55)
[2023-01-05] MEDS: HYDROCORTISONE SOD SUCC 100 MG/2ML INJ VIAL IV SCH ×2 (09:55→21:34)
[2023-01-05] MEDS: PANTOPRAZOLE 40 MG/10 ML VIAL INJ IV SCH ×2 (09:55→21:34)
[2023-01-05] MEDS: Glucerna Carbsteady SHAKE Vanilla 8oz PO SCH ×2 (09:56→12:00)
[2023-01-05] MEDS: POTASSIUM EFFERVESENT TAB 25 MEQ PO SCH ×2 (09:56→21:34)
[2023-01-05] MEDS: IRON SUCROSE COMPLEX 200 MG in SODIUM CHL 0.9% 100 ML IV SCH (12:00)
[2023-01-06] VITALS (63 sets, daily range): BP systolic 82–112; BP diastolic 40–61; PULSE 70–106; RESP 11–25; TEMP 97.1–98.2; O2SAT 93–98
[2023-01-06] MEDS: CEFEPIME 2GM/50ML NS 50 ML IV SCH ×2 (01:56→13:33)
[2023-01-06 04:06] LABS: Hematocrit 29.3 % (41.0-53.0); Mean Corpuscular Hemoglobin 33.6 pg (28.0-32.0); Mean Corpuscular Hgb Conc. 34.1 g/dL (32.0-36.0); Mean Corpuscular Volume 98.6 fL (80.0-100.0); Red Blood Cells 2.97 10^6/uL (4.5-5.90)
[2023-01-06 04:11] LABS: Anion Gap 5.1 (5-15); Carbon Dioxide 25.9 mmol/L (20-30); Chloride 104 mmol/L (98-107); Potassium 4.9 mmol/L (3.5-5.1); Sodium 135 mmol/L (136-145)
[2023-01-06 04:13] LABS: Calcium 7.9 mg/dL (8.7-10.4)
[2023-01-06 04:17] LABS: BUN/Creatinine Ratio 37.5 (10.0-20.0); Blood Urea Nitrogen 48 mg/dL (9-23); Glucose 156 mg/dL (74-106)
[2023-01-06 04:32] LABS: Red Cell Distribution Width 20.3 % (11.8-14.3); White Blood Cell 186.6 10^3/uL (4.4-10.8)
[2023-01-06 04:33] LABS: Band Neutrophils % (manual) 0; Basophils % (manual) 0 (0.0-2.0); Blast Cells 0; Eosinophils % (manual) 0 (0-7); Metamyelocytes % 0; Monocytes % (manual) 0 (0-12); Myelocytes % 0; Promyelocytes % 0; Reactive Lymphocytes 0
[2023-01-06] MEDS: MIDODRINE HCL 10 MG TAB PO SCH ×2 (05:49→13:20)
[2023-01-06 08:18] LABS: Lymphocytes % (manual) 94 (10.0-50.0); Smudge Cells 37 /100 WBC
[2023-01-06 08:19] LABS: Platelet Estimate Decreased
[2023-01-06] MEDS: Glucerna Carbsteady SHAKE Vanilla 8oz PO SCH ×2 (09:02→13:20)
[2023-01-06] MEDS: FUROSEMIDE 40 MG/4 ML VIAL IV SCH (10:39)
[2023-01-06] MEDS: HYDROCORTISONE SOD SUCC 100 MG/2ML INJ VIAL IV SCH (10:40)
[2023-01-06] MEDS: SODIUM CHLOR 0.9% PF (SALINE LOCK) 10ML VIAL/SYR IV SCH (10:40)
[2023-01-06] MEDS: POTASSIUM EFFERVESENT TAB 25 MEQ PO SCH (10:40)
[2023-01-06] MEDS: PANTOPRAZOLE 40 MG/10 ML VIAL INJ IV SCH (10:40)
[2023-01-06] MEDS ORDERED: MID10T PO ×3 (12:18→12:31)
[2023-01-06] MEDS ORDERED: PANT40T PO ×3 (12:18→12:31)
[2023-01-06] MEDS ORDERED: WARF4TAB69 PO ×3 (12:18→12:31)
[2023-01-06] MEDS: IRON SUCROSE COMPLEX 200 MG in SODIUM CHL 0.9% 100 ML IV SCH (13:19)
== END 2023-01-06 15:02 | disposition hospice, home (50) | DRG 871 ==
LOC: EDBD 15:03 → ER 15:03 → TELE 22:36 → ICU WEST 12-31 02:34
PROVIDERS: ADMIT Nurse Practitioner Family; ATTEND Hospitalist
PROC: 30233N1 Transfusion of Nonautologous Red Blood Cells into Peripheral Vein, Percutaneous Approach (ICD-10-PCS; 2022-12-30)
PROC: 30233K1 Transfusion of Nonautologous Frozen Plasma into Peripheral Vein, Percutaneous Approach (ICD-10-PCS; 2022-12-31)
PROC: 02HV33Z Insertion of Infusion Device into Superior Vena Cava, Percutaneous Approach (ICD-10-PCS; principal; 2023-01-02)
PROC: B548ZZA Ultrasonography of Superior Vena Cava, Guidance (ICD-10-PCS; 2023-01-02)
PROC: 0W9B3ZZ Drainage of Left Pleural Cavity, Percutaneous Approach (ICD-10-PCS; 2023-01-02)
DX: A41.9 Sepsis, unspecified organism (principal); J18.9 Pneumonia, unspecified organism; J96.01 Acute respiratory failure with hypoxia; R65.21 Severe sepsis with septic shock; C91.10 Chronic lymphocytic leukemia of B-cell type not having achieved remission; N17.9 Acute kidney failure, unspecified; D68.9 Coagulation defect, unspecified; D69.3 Immune thrombocytopenic purpura; I13.0 Hypertensive heart and chronic kidney disease with heart failure and stage 1 through stage 4 chronic kidney disease, or unspecified chronic kidney disease; J98.11 Atelectasis; D62 Acute posthemorrhagic anemia; J90 Pleural effusion, not elsewhere classified; Z20.822 Contact with and (suspected) exposure to COVID-19; I48.91 Unspecified atrial fibrillation; E78.00 Pure hypercholesterolemia, unspecified; E86.0 Dehydration; I25.10 Atherosclerotic heart disease of native coronary artery without angina pectoris; I50.9 Heart failure, unspecified; N18.9 Chronic kidney disease, unspecified; N40.0 Benign prostatic hyperplasia without lower urinary tract symptoms; R62.7 Adult failure to thrive; N28.89 Other specified disorders of kidney and ureter; Z51.5 Encounter for palliative care; Z83.3 Family history of diabetes mellitus; Z79.01 Long term (current) use of anticoagulants; Z79.899 Other long term (current) drug therapy; Z86.711 Personal history of pulmonary embolism; Z86.718 Personal history of other venous thrombosis and embolism; Z87.442 Personal history of urinary calculi; Z92.21 Personal history of antineoplastic chemotherapy; Z98.61 Coronary angioplasty status; Z68.26 Body mass index [BMI] 26.0-26.9, adult
CPT/HCPCS: 99291; S9538; 36415; 36569; 71045; 71250; 76604; 76775; 76942; 80048; 80053; 80076; 80202; 81001; 82140; 82570; 83010; 83605; 83615; 83735; 83880; 83970; 83986; 84100; 84156; 84300; 84484; 84550; 85007; 85014; 85018; 85027; 85045; 85610; 85730; 86850; 86880; 86900; 86901; 86920; 87040; 87070; 87081; 87205; 87426; 89051; 93005; 93306; 94640; C9113; G0378; J0692; J0696; J1756; J1956; J2543; J3430; J3480; P9047